=== PATIENT | male | born 1960 | race Caucasian/White ===

== ENCOUNTER 2020-12-07 11:30 | Observation (INO) ==
[2020-12-07] MEDS ORDERED: Ondansetron 4 MG/2 ML VIAL IVP PRN (12:37)
[2020-12-07] MEDS ORDERED: Naloxone 0.4 MG/ML INJ IVP PRN (12:37)
[2020-12-07 13:39] LABS: Basophils % 0.1 %; Eosinophils # 0.1 K/mcL (0.0-0.6); Eosinophils % 0.7 %; Hematocrit 39.8 % (37.5-50.1); Hemoglobin 14.2 g/dL (12.9-16.9); Immature Granulocytes % 0.7 % (0-4); Lymphocytes # 0.9 K/mcL (0.6-4.6); Lymphocytes % 12.3 %; Mean Corpuscular HGB Conc 35.7 g/dL (31.6-35.5); Mean Corpuscular Hemoglobin 33.2 pg (28.0-33.3); Mean Platelet Volume 9.1 fL (9.4-12.4); Monocytes # 0.2 K/mcL (0.0-1.3); Monocytes % 3.2 %; Neutrophils # 5.9 K/mcL (1.6-8.9); Platelet Count 292 K/mcL (140-400); Red Blood Count 4.28 M/mcL (4.19-5.50); Red Cell Distribution Width 12.1 % (11.5-14.5); White Blood Count 7.1 K/mcL (4.3-11.1)
[2020-12-07 13:46] LABS: Prothrombin Time 11.2 Seconds (9.4-12.1)
[2020-12-07 14:04] LABS: BUN/Creatinine Ratio 12 (6-26); Blood Urea Nitrogen 9 mg/dL (6-20); Calcium 9.4 mg/dL (8.6-10.3); Carbon Dioxide 21 mEq/L (23-29); Chloride 104 mEq/L (98-107); Glucose 129 mg/dL (70-105); Magnesium 1.7 mg/dL (1.6-2.6); Osmolality,Calculated 282 (280-300); Potassium 4.2 mEq/L (3.5-5.1); Sodium 136 mEq/L (136-145); Troponin I < 0.03 ng/mL (< 0.04); eGFR For African Americans > 60 (> 60); eGFR For Non-African Americans > 60 (> 60)
[2020-12-07] MEDS ORDERED: *HR* LORazepam 2 MG/ML VIAL IVP PRN ×3 (14:16)
[2020-12-07] MEDS ORDERED: MethylPREDNISolone 40 MG/ML VIAL IVP SCH ×2 (14:25→23:00)
[2020-12-07] MEDS: Thiamine (B-1) 100 MG TABLET PO SCH (15:00)
[2020-12-07] MEDS: Folic Acid 1 MG TABLET PO SCH (15:00)
[2020-12-07] MEDS: Nicotine 21 MG PATCH.TD24 TD SCH (15:00)
[2020-12-07] MEDS: Ipratropium/Albuterol Neb 3 ML IH SCH ×2 (16:00→21:40)
[2020-12-07] MEDS: Acetaminophen 325 MG TABLET PO PRN (18:26)
[2020-12-07] MEDS ORDERED: 0.9 % Sodium Chloride 250 ML ONE (18:49)
[2020-12-07] MEDS: Azithromycin 500 MG in 0.9 % Sodium Chloride 250 ML IVPB SCH (18:53)
[2020-12-07] MEDS ORDERED: Nitroglycerin 0.4 MG TAB.SUBL SL PRN (20:09)
[2020-12-07] MEDS: Loratadine 10 MG TABLET PO SCH (20:40)
[2020-12-07] MEDS: Levalbuterol Neb 0.63 MG/3 ML IH SCH ×2 (21:11→21:39)
[2020-12-08] MEDS: Acetaminophen 325 MG TABLET PO PRN ×2 (00:31→08:15)
[2020-12-08 00:33] LABS: Estimated Average Glucose 134 mg/dl; Hemoglobin A1C 6.3 %
[2020-12-08 00:42] LABS: Basophils % 0.1 %; Hematocrit 40.8 % (37.5-50.1); Hemoglobin 14.5 g/dL (12.9-16.9); Immature Granulocytes % 0.5 % (0-4); Lymphocytes # 1.2 K/mcL (0.6-4.6); Mean Corpuscular HGB Conc 35.5 g/dL (31.6-35.5); Mean Corpuscular Hemoglobin 33.3 pg (28.0-33.3); Mean Corpuscular Volume 93.8 fL (83.0-100.0); Mean Platelet Volume 9.2 fL (9.4-12.4); Monocytes # 0.4 K/mcL (0.0-1.3); Monocytes % 2.4 %; Neutrophils # 13.3 K/mcL (1.6-8.9); Platelet Count 305 K/mcL (140-400); Red Blood Count 4.35 M/mcL (4.19-5.50)
[2020-12-08 00:48] LABS: White Blood Count 14.9 K/mcL (4.3-11.1)
[2020-12-08 00:55] LABS: BUN/Creatinine Ratio 15 (6-26); Blood Urea Nitrogen 16 mg/dL (6-20); Carbon Dioxide 17 mEq/L (23-29); Chloride 102 mEq/L (98-107); Glucose 151 mg/dL (70-105); Magnesium 1.5 mg/dL (1.6-2.6); Osmolality,Calculated 280 (280-300); Potassium 4.1 mEq/L (3.5-5.1); Sodium 133 mEq/L (136-145); eGFR For African Americans > 60 (> 60); eGFR For Non-African Americans > 60 (> 60)
[2020-12-08 00:57] LABS: Troponin I < 0.03 ng/mL (< 0.04)
[2020-12-08 01:11] LABS: Thyroid Stimulating Hormone 3.064 mcIU/mL (0.340-5.600)
[2020-12-08] MEDS: Levalbuterol Neb 0.63 MG/3 ML IH SCH ×4 (03:34→21:42)
[2020-12-08] MEDS: Ipratropium/Albuterol Neb 3 ML IH SCH (03:35)
[2020-12-08] MEDS: *HR* Enoxaparin 40 MG/0.4 ML SYRINGE SQ SCH (05:43)
[2020-12-08] MEDS: Thiamine (B-1) 100 MG TABLET PO SCH (08:15)
[2020-12-08] MEDS: Folic Acid 1 MG TABLET PO SCH (08:15)
[2020-12-08] MEDS: Nicotine 21 MG PATCH.TD24 TD SCH (08:17)
[2020-12-08] MEDS: predniSONE 20 MG TABLET PO SCH (08:17)
[2020-12-08] MEDS ORDERED: Pramoxine 15 GM FOAM Package TP PRN (10:35)
[2020-12-08] MEDS ORDERED: Artificial Tears SOLN 15 ML BOTTLE BOTH EYES PRN (10:35)
[2020-12-08] MEDS ORDERED: Ketotifen Fumarate [Eye Itch Relief] 5 ML Drops OP PRN (10:56)
[2020-12-08] MEDS: clonazePAM 1 MG TABLET PO SCH ×2 (11:37→20:49)
[2020-12-08] MEDS: levETIRAcetam 250 MG TABLET PO SCH ×2 (11:37→20:49)
[2020-12-08] MEDS ORDERED: Pantoprazole 40 MG VIAL IVP ONE (12:13)
[2020-12-08] MEDS ORDERED: GI Cocktail 40 ML EACH PO ONE (12:14)
[2020-12-08] MEDS: Azithromycin 500 MG in 0.9 % Sodium Chloride 250 ML IVPB SCH (18:48)
[2020-12-08] MEDS: Pregabalin 50 MG CAPSULE PO SCH (20:49)
[2020-12-08] MEDS: Loratadine 10 MG TABLET PO SCH (20:49)
[2020-12-08] MEDS ORDERED: Preparation H Ointment 57 GM TUBE RC PRN (22:05)
[2020-12-09 03:37] VITALS: PULSE 76
[2020-12-09] MEDS: Levalbuterol Neb 0.63 MG/3 ML IH SCH ×2 (03:57→11:23)
[2020-12-09] MEDS: *HR* Enoxaparin 40 MG/0.4 ML SYRINGE SQ SCH (05:38)
[2020-12-09] MEDS ORDERED: Regadenoson 0.4 MG/5 ML SYRINGE IVP ONE (06:14)
[2020-12-09] MEDS ORDERED: Azithromycin 250 MG TABLET PO SCH (09:00)
[2020-12-09] MEDS: levETIRAcetam 250 MG TABLET PO SCH (09:46)
[2020-12-09] MEDS: Pregabalin 50 MG CAPSULE PO SCH (09:47)
[2020-12-09] MEDS: Thiamine (B-1) 100 MG TABLET PO SCH (09:47)
[2020-12-09] MEDS: Folic Acid 1 MG TABLET PO SCH (09:47)
[2020-12-09] MEDS: predniSONE 20 MG TABLET PO SCH (09:47)
[2020-12-09] MEDS: Nicotine 21 MG PATCH.TD24 TD SCH (09:47)
[2020-12-09] MEDS: clonazePAM 1 MG TABLET PO SCH (09:47)
[2020-12-09 11:40] VITALS: BP 119/84; TEMP 97.4; O2SAT 97
== END 2020-12-09 14:35 | disposition home or self-care (01) ==
LOC: 2ANU → SUATTDRO 12:24
PROVIDERS: ADMIT Pharmacist; ATTEND Internal Medicine